=== PATIENT | male | born 1980 | race Caucasian/White ===

== ENCOUNTER 2024-07-04 03:08 | Inpatient (IN) | payer OTHER ==
[2024-07-04] MEDS: SODIUM CHLORIDE 0.9% 1,000 ML IV STA ×2 (04:04→05:00)
[2024-07-04] MEDS: LORazepam 2 MG/ML INJ IV STA ×5 (04:14→07:17)
[2024-07-04] MEDS: ONDANSETRON 4 MG/2 ML VIAL IVP STA (04:28)
[2024-07-04 04:31] LABS: Basophils % (A) 0 %; Eosinophils # (A) 0.2 k/uL (0-0.7); Eosinophils % (A) 2 %; HCT 44.9 % (39.0-53.0); HGB 15.4 gm/dL (13.0-17.5); Lymphocytes # (A) 2.1 k/uL (1.0-4.8); Lymphocytes % (A) 19 %; MCH 30.3 pg (25.0-35.0); MCHC 34.4 g/dL (31.0-37.0); MCV 88.2 fL (80.0-100.0); Monocytes # (A) 0.6 k/uL (0-1.0); Monocytes % (A) 5 %; Neutrophils # (A) 8.1 k/uL (1.3-7.7); Neutrophils % (A) 72 %; Platelet Count 281 k/uL (150-450); RBC 5.09 m/uL (4.30-5.90); RDW 13.9 % (11.5-15.5); WBC 11.2 k/uL (3.8-10.6)
[2024-07-04 04:36] LABS: ALT 23 U/L (4-49); AST 36 U/L (17-59); African American GFR (CKD) >90 (>60 ml/min/1.73 sqM); Albumin 4.3 g/dL (3.5-5.0); Alkaline Phosphatase 89 U/L (38-126); Amylase 72 U/L (30-110); Anion Gap 4 mmol/L; Blood Urea Nitrogen 10 mg/dL (9-20); Calcium 10.1 mg/dL (8.4-10.2); Carbon Dioxide 23 mmol/L (22-30); Chloride 108 mmol/L (98-107); Glucose 119 mg/dL (74-99); Lipase 176 U/L (23-300); Non-African American GFR(CKD) >90 (>60 ml/min/1.73 sqM); Potassium 3.8 mmol/L (3.5-5.1); Sodium 135 mmol/L (137-145); Total Protein 7.1 g/dL (6.3-8.2)
[2024-07-04 04:40] LABS: Partial Thromboplastin Time 26.2 sec (22.0-30.0); Prothrombin Time 10.8 sec (10.0-12.5)
[2024-07-04] MEDS: LORazepam 2 MG/ML INJ IV PRN ×2 (04:55→08:16)
--- NOTE | 2024-07-04 05:03 | CT ---
EXAMINATION TYPE: CT brain wo con DATE OF EXAM: 07/04/2024 COMPARISON: None. HISTORY: Confusion CT DLP: 1164 mGycm. Automated Exposure Control for Dose Reduction was Utilized. TECHNIQUE: CT scan of the head is performed without contrast. FINDINGS: There is no acute intracranial hemorrhage, mass effect, or midline shift identified. Mild ventricular and sulcal prominence. Knight-white matter differentiation is maintained. Nasal septum is deviated to right of midline. The globes are intact bilaterally. Completely opacified right maxillary sinus with suggestion of break through along the posterior sinus wall. Advise ENT follow-up. IMPRESSION: No acute intracranial hemorrhage or midline shift is seen. Completely opacified right ma xillary sinus noted. [facility], , 07/04/2024 5:00 AM
[2024-07-04] MEDS ORDERED: NALOXONE 0.4 MG/ML 1 ML VIAL IV PRN (05:21)
--- NOTE | 2024-07-04 05:21 | ED ---
General Adult HPI - General Chief complaint: Alcohol Stated complaint: Detox Time Seen by Provider: 07/04/24 03:48 Source: patient, RN notes reviewed, old records reviewed Mode of arrival: ambulatory Limitations: no limitations - History of Present Illness Initial comments: 44-year-old male with no significant past medical history presents emergency department for alcohol drawl's. Presents from [place] over concern for some intermittent agitation. Began detoxing approximately 24 hours ago. Last drink was at 0030 last night. Does have a history of alcohol withdrawals. Denies any chest pain or shortness of breath. Denies any abdominal pain, nausea, vomiting. Presents for further evaluation. - Related Data Allergies Allergy/AdvReac Type Severity Reaction Status Date / Time No Known Allergies Allergy Verified 07/04/24 03:17 Review of Systems ROS Statement: Those systems with pertinent positive or pertinent negative responses have been documented in the HPI. Review of Systems: CONST: Denies fever EYES: Denies blurry vision ENT: Denies nasal congestion C/V: Denies Chest pain RESP: Denies shortness of breath GI: Denies abdominal pain : Denies dysuria SKIN: Denies rash. MSK: Denies joint pain. NEURO: Denies headache ROS Other: All systems not noted in ROS Statement are negative. Past Medical History Past Medical History: No Reported History Past Surgical History: No Surgical Hx Reported Past Psychological History: No Psychological Hx Reported Smoking Status: Current every day smoker Past Alcohol Use History: Abuse Past Drug Use History: None Reported General Exam - General Exam Comments Initial Comments: General: Patient has mild tremors and tongue fasciculations. HEAD: Normal with no signs of head trauma. EYES: PERRLA, EOMI, conjunctiva normal, no discharge. Close are 3 mm and equal bilaterally. ENT: Hearing grossly intact, normal oropharynx. RESPIRATORY: Clear breath sounds bilaterally. No wheezes, rales, or rhonchi. C/V: Regular rate and rhythm. S1 and S2 auscultated, no edema, peripheral pulses 2+ and intact throughout ABD: Abd is soft, nontender, nondistended EXT: Normal range of motion, no obvious deformity SKIN: No rashes or lesions observed on exposed skin. NEURO: Alert and oriented x 3 but does have some conversational confusion. No focal deficits appreciated. Limitations: no limitations Course Vital Signs 07/04/24 03:12 Temperature 98.7 F Pulse Rate 96 Respiratory 18 Rate Blood Pressure 148/107 O2 Sat by Pulse 99 Oximetry Medical Decision Making - Medical Decision Making Was pt. sent in by a medical professional or institution (CLARISSA Garcia, HUMAN RESOURCE STATISTICIAN, urgent care, hospital, or prison...) When possible be specific @ -Sent from [place] over concern for worsening alcohol withdrawals Did you speak to anyone other than the patient for history (EMS, parent, family, police, friend...)? What history was obtained from this source @ -No Did you review nursing and triage notes (agree or disagree)? Why? @ -I reviewed and agree with nursing and triage notes Were old charts reviewed (outside hosp., previous admission, EMS record, old EKG, old radiological studies, urgent care reports/EKG's, prison records)? Report findings @ -No old charts were reviewed Differential Diagnosis (chest pain, altered mental status, abdominal pain women, abdominal pain men, vaginal bleeding, weakness, fever, dyspnea, syncope, headache, dizziness, GI bleed, back pain, seizure, CVA, palpatations, mental health, musculoskeletal)? @ -Alcohol withdrawals, dehydration, electrolyte abnormalities. This list is not all inclusive. EKG interpreted by me (3pts min.). @ -As above X-rays interpreted by me (1pt min.). @ -None done CT interpreted by me (1pt min.). @ -Brain reveals no obvious acute intracranial process. U/S interpreted by me (1pt. min.). @ -None done What testing was considered but not performed or refused? (CT, X-rays, U/S, labs)? Why? @ -None What meds were considered but not given or refused? Why? @ -None Did you discuss the management of the patient with other professionals (professionals i.e. CLARISSA Garcia, HUMAN RESOURCE STATISTICIAN, lab, RT, psych nurse, manager social, test specialist, teacher, chief procurement officer, onsite case manager)? Give summary @ -No Was smoking cessation discussed for >3mins.? @ -No Was critical care preformed (if so, how long)? @ -No Were there social determinants of health that impacted care today? How? (Homeles sness, low income, unemployed, alcoholism, drug addiction, transportation, low edu. Level, literacy, decrease access to med. care, penitentiary, rehab)? @ -No Was there de-escalation of care discussed even if they declined (Discuss DNR or withdrawal of care, Hospice)? DNR status @ -No What co-morbidities impacted this encounter? (DM, HTN, Smoking, COPD, CAD, Cancer, CVA, ARF, Chemo, Hep., AIDS, mental health diagnosis, sleep apnea, morbid obesity)? @ -None Was patient admitted / discharged? Hospital course, mention meds given and route, prescriptions, significant lab abnormalities, going to OR and other pertinent info. @ -Patient presents emergency department for alcohol withdrawals from rehab. Patient was placed on CIWA protocol. CIWA's approximately 12. Patient will be given IV Ativan and we will obtain CT brain due to his conversation confusion in addition to laboratory studies. Patient in agreement this plan. Vitals are currently within acceptable limits. EKG shows no signs of acute ischemia. CT brain shows no obvious acute intracranial process. Laboratory studies unremarkable. On reevaluation, patient is still having withdrawal symptoms. He will be admitted for his alcohol withdrawals. I spoke with the admitting team, Dr. Blount of [facility] who accepted the admission. We will continue with CIWA protocol. Undiagnosed new problem with uncertain prognosis? @ -No Drug Therapy requiring intensive monitoring for toxicity (Heparin, Nitro, Insulin, Cardizem)? @ -No Were any procedures done? @ -No Diagnosis/symptom? @ -Alcohol withdrawals Acute, or Chronic, or Acute on Chronic? @ -Acute Uncomplicated (without systemic symptoms) or Complicated (systemic symptoms)? @ -Complicated Side effects of treatment? @ -No Exacerbation, Progression, or Severe Exacerbation? @ -No Poses a threat to life or bodily function? How? (Chest pain, [place], [place], pneumonia, PE, COPD, DKA, ARF, appy, cholecystitis, CVA, Diverticulitis, Homicidal, Suicidal, threat to staff... and all critical care pts) @ -Potentially, yes - Lab Data Result diagrams: 07/04/24 03:29 07/04/24 03:29 Lab Results 07/04/24 07/04/24 07/04/24 Range/Units 03:29 03:29 03:29 WBC 11.2 H (3.8-10.6) k/uL RBC 5.09 (4.30-5.90) m/uL Hgb 15.4 (13.0-17.5) gm/dL Hct 44.9 (39.0-53.0) % MCV 88.2 (80.0-100.0) fL MCH 30.3 (25.0-35.0) pg MCHC 34.4 (31.0-37.0) g/dL RDW 13.9 (11.5-15.5) % Plt Count 281 (150-450) k/uL MPV 8.0 Neutrophils % 72 % Lymphocytes % 19 % Monocytes % 5 % Eosinophils % 2 % Basophils % 0 % Neutrophils # 8.1 H (1.3-7.7) k/uL Lymphocytes # 2.1 (1.0-4.8) k/uL Monocytes # 0.6 (0-1.0) k/uL Eosinophils # 0.2 (0-0.7) k/uL Basophils # 0.0 (0-0.2) k/uL PT 10.8 (10.0-12.5) sec INR 1.0 (<1.2) APTT 26.2 (22.0-30.0) sec Sodium 135 L (137-145) mmol/L Potassium 3.8 (3.5-5.1) mmol/L Chloride 108 H (98-107) mmol/L Carbon Dioxide 23 (22-30) mmol/L Anion Gap 4 mmol/L BUN 10 (9-20) mg/dL Creatinine 0.85 (0.66-1.25) mg/dL Est GFR (CKD-EPI)AfAm >90 (>60 ml/min/1.73 sqM) Est GFR (CKD-EPI)NonAf >90 (>60 ml/min/1.73 sqM) Glucose 119 H (74-99) mg/dL Calcium 10.1 (8.4-10.2) mg/dL Total Bilirubin 1.0 (0.2-1.3) mg/dL AST 36 (17-59) U/L ALT 23 (4-49) U/L Alkaline Phosphatase 89 (38-126) U/L Ammonia (<30) umol/L Total Protein 7.1 (6.3-8.2) g/dL Albumin 4.3 (3.5-5.0) g/dL Amylase 72 (30-110) U/L Lipase 176 (23-300) U/L 07/04/24 Range/Units 03:29 WBC (3.8-10.6) k/uL RBC (4.30-5.90) m/uL Hgb (13.0-17.5) gm/dL Hct (39.0-53.0) % MCV (80.0-100.0) fL MCH (25.0-35.0) pg MCHC (31.0-37.0) g/dL RDW (11.5-15.5) % Plt Count (150-450) k/uL MPV Neutrophils % % Lymphocytes % % Monocytes % % Eosinophils % % Basophils % % Neutrophils # (1.3-7.7) k/uL Lymphocytes # (1.0-4.8) k/uL Monocytes # (0-1.0) k/uL Eosinophils # (0-0.7) k/uL Basophils # (0-0.2) k/uL PT (10.0-12.5) sec INR (<1.2) APTT (22.0-30.0) sec Sodium (137-145) mmol/L Potassium (3.5-5.1) mmol/L Chloride (98-107) mmol/L Carbon Dioxide (22-30) mmol/L Anion Gap mmol/L BUN (9-20) mg/dL Creatinine (0.66-1.25) mg/dL Est GFR (CKD-EPI)AfAm (>60 ml/min/1.73 sqM) Est GFR (CKD-EPI)NonAf (>60 ml/min/1.73 sqM) Glucose (74-99) mg/dL Calcium (8.4-10.2) mg/dL Total Bilirubin (0.2-1.3) mg/dL AST (17-59) U/L ALT (4-49) U/L Alkaline Phosphatase (38-126) U/L Ammonia 15 (<30) umol/L Total Protein (6.3-8.2) g/dL Albumin (3.5-5.0) g/dL Amylase (30-110) U/L Lipase (23-300) U/L - EKG Data -: EKG Interpreted by Me EKG Comments: 12-lead Electrocardiogram Interpretation Note EKG was reviewed and interpreted by myself. 12-lead ECG performed at 0354 is interpreted by me as revealing normal sinus rhythm at a rate of 71 beats per minute. [place] is normal. UT interval is 126 ms, QRS duration is 110 ms, QTc is 348 ms.. There were no ST or T wave abnormalities to suggest myocardial ischemia or injury. R wave progression across the precordium was satisfactory. By my interpretation this EKG is non-diagnostic for acute ischemia. Disposition Clinical Impression: Alcohol withdrawal Disposition: ADMITTED IP TO THIS HOSP Condition: Stable Time of Disposition: 05:20
[2024-07-04] MEDS: NICOTINE 14MG/24HR PATCH TRANSDERM STA (05:31)
--- NOTE | 2024-07-04 06:41 | ED ---
Medical Decision Making - Lab Data Result diagrams: 07/04/24 03:29 07/04/24 03:29 Lab Results 07/04/24 07/04/24 07/04/24 Range/Units 03:29 03:29 03:29 WBC 11.2 H (3.8-10.6) k/uL RBC 5.09 (4.30-5.90) m/uL Hgb 15.4 (13.0-17.5) gm/dL Hct 44.9 (39.0-53.0) % MCV 88.2 (80.0-100.0) fL MCH 30.3 (25.0-35.0) pg MCHC 34.4 (31.0-37.0) g/dL RDW 13.9 (11.5-15.5) % Plt Count 281 (150-450) k/uL MPV 8.0 Neutrophils % 72 % Lymphocytes % 19 % Monocytes % 5 % Eosinophils % 2 % Basophils % 0 % Neutrophils # 8.1 H (1.3-7.7) k/uL Lymphocytes # 2.1 (1.0-4.8) k/uL Monocytes # 0.6 (0-1.0) k/uL Eosinophils # 0.2 (0-0.7) k/uL Basophils # 0.0 (0-0.2) k/uL PT 10.8 (10.0-12.5) sec INR 1.0 (<1.2) APTT 26.2 (22.0-30.0) sec Sodium 135 L (137-145) mmol/L Potassium 3.8 (3.5-5.1) mmol/L Chloride 108 H (98-107) mmol/L Carbon Dioxide 23 (22-30) mmol/L Anion Gap 4 mmol/L BUN 10 (9-20) mg/dL Creatinine 0.85 (0.66-1.25) mg/dL Est GFR (CKD-EPI)AfAm >90 (>60 ml/min/1.73 sqM) Est GFR (CKD-EPI)NonAf >90 (>60 ml/min/1.73 sqM) Glucose 119 H (74-99) mg/dL Calcium 10.1 (8.4-10.2) mg/dL Total Bilirubin 1.0 (0.2-1.3) mg/dL AST 36 (17-59) U/L ALT 23 (4-49) U/L Alkaline Phosphatase 89 (38-126) U/L Ammonia (<30) umol/L Total Protein 7.1 (6.3-8.2) g/dL Albumin 4.3 (3.5-5.0) g/dL Amylase 72 (30-110) U/L Lipase 176 (23-300) U/L 07/04/24 Range/Units 03:29 WBC (3.8-10.6) k/uL RBC (4.30-5.90) m/uL Hgb (13.0-17.5) gm/dL Hct (39.0-53.0) % MCV (80.0-100.0) fL MCH (25.0-35.0) pg MCHC (31.0-37.0) g/dL RDW (11.5-15.5) % Plt Count (150-450) k/uL MPV Neutrophils % % Lymphocytes % % Monocytes % % Eosinophils % % Basophils % % Neutrophils # (1.3-7.7) k/uL Lymphocytes # (1.0-4.8) k/uL Monocytes # (0-1.0) k/uL Eosinophils # (0-0.7) k/uL Basophils # (0-0.2) k/uL PT (10.0-12.5) sec INR (<1.2) APTT (22.0-30.0) sec Sodium (137-145) mmol/L Potassium (3.5-5.1) mmol/L Chloride (98-107) mmol/L Carbon Dioxide (22-30) mmol/L Anion Gap mmol/L BUN (9-20) mg/dL Creatinine (0.66-1.25) mg/dL Est GFR (CKD-EPI)AfAm (>60 ml/min/1.73 sqM) Est GFR (CKD-EPI)NonAf (>60 ml/min/1.73 sqM) Glucose (74-99) mg/dL Calcium (8.4-10.2) mg/dL Total Bilirubin (0.2-1.3) mg/dL AST (17-59) U/L ALT (4-49) U/L Alkaline Phosphatase (38-126) U/L Ammonia 15 (<30) umol/L Total Protein (6.3-8.2) g/dL Albumin (3.5-5.0) g/dL Amylase (30-110) U/L Lipase (23-300) U/L Disposition Clinical Impression: Alcohol withdrawal Disposition: ADMITTED IP TO THIS [facility] Condition: Stable Procedures - Restraint - Face to Face Restraint Occurrence 1 Patient's Immediate Situation: Endangers self safety, Endangers others' safety, Endangers staff safety Patient's Reaction to the Intervention: Uncooperative Patient's Medical & Behavioral Condition: Awake, Alert
[2024-07-04] MEDS: NICOTINE 21MG/24HR PATCH TRANSDERM SCH (07:17)
[2024-07-04] MEDS: SODIUM CHLORIDE 0.9% 1,000 ML IV SCH (08:38)
--- NOTE | 2024-07-04 09:03 | P.HPIM ---
History of Present Illness H&P Date: 07/04/24 Patient is a 44-year-old male with history of alcohol dependence presenting for alcohol withdrawal. Per report, patient was checked in to [place] 2 days ago. Supposedly last drink was 2 days ago as well. He comes in with severe alcohol withdrawal symptoms. In the ED he has been very combative, also complaining of visual hallucinations. Patient unable to provide any other meaningful history at the moment. In the ED, temperature was 98.7, pulse 96, respiratory rate 18, blood pressure 148/107, saturating at 99% on room air. WBC 11.2, sodium 135, potassium 3.8, creatinine 0.85, ammonia 15, lipase 176. Head CT did not show any acute process. EKG independently interpreted showed sinus rhythm with incomplete right bundle branch block. He around 2 L of normal saline in the ED. About 10 mg of IV Ativan. Patient being admitted for severe alcohol withdrawal. Pertinent positives and negatives as discussed in HPI, a complete review of systems was performed and all other systems are negative. Patient seen and examined at bedside. Vital signs reviewed General: Agitated Derm: warm, dry Head: atraumatic, normocephalic, symmetric Eyes: EOMI, no lid lag, anicteric sclera ENT: Nose and ears atraumatic Neck: No thyromegaly Mouth: no lip lesion, mucus membranes moist Cardiovascular: no edema Lungs: no accessory muscle use Abdominal: Nondistended Ext: no gross muscle atrophy, muscle strength muscle strength 5 out of 5 in all 4 extremities, no contractures Neuro: CN II-XII grossly intact Psych: Combative Assessment/Plan: Active: Severe alcohol withdrawal Alcohol dependence Mild leukocytosis, reactive -Continue IV Ativan per CIWA score, monitor for sedation -Started on Librium 25 3 times daily -Thiamine 100 mg and folic acid 1 mg ordered -Continue telemetry monitoring -If patient continues to be combative, may need Precedex drip and possible ICU consult Nicotine dependence -Continue 21 mg patch daily The patient is admitted with an anticipated greater than 2 midnight stay as inpatient status for evaluation of severe alcohol withdrawal. Surrogate decision-maker: Mother CODE STATUS: Full code DVT prophylaxis: Low [place] score, SCDs Anticipated discharge date: Pending clinical course Anticipated discharge place: Pending clinical course A total of 55 minutes was spent on the care of this complex patient more than 50% of the time was spent in counseling and care coordination. Past Medical History Past Medical History: No Reported History Past Surgical History: No Surgical Hx Reported Past Psychological History: No Psychological Hx Reported Smoking Status: Current every day smoker Past Alcohol Use History: Abuse Past Drug Use History: None Reported Medications and Allergies Home Medications Medication Instructions Recorded Confirmed Type Acetaminophen Tab [Tylenol] 650 mg PO QID PRN 07/04/24 07/04/24 History Calcium Phos/D3/Magnesium/Zinc 1 tab PO TID PRN 07/04/24 07/04/24 History [Rtuzvxx-Stc-Jlit-Vitamin D3] Chlorpheniramine Maleate 4 mg PO Q4H PRN 07/04/24 07/04/24 History [Chlor-Trimeton] Hyoscyamine Sulfate [Levsin] 0.125 mg PO QID PRN 07/04/24 07/04/24 History Ibuprofen [Motrin Ib] 600 mg PO Q6H PRN 07/04/24 07/04/24 History LORazepam [Ativan] 1 - 2 mg PO Q4H 07/04/24 07/04/24 History Loperamide HCl [Imodium A-D] 4 mg PO QID PRN 07/04/24 07/04/24 History Mag Hydrox/Aluminum Hyd/Simeth 30 ml PO Q4H PRN 07/04/24 07/04/24 History [Mylanta Maximum Strength Liq] Melatonin 10 mg PO HS 07/04/24 07/04/24 History Mirtazapine [Remeron] 15 mg PO HS 07/04/24 07/04/24 History Multivitamins, Thera [Multivitamin 1 tab PO DAILY PRN 07/04/24 07/04/24 History (formulary)] Thiamine [Vitamin B-1] 100 mg PO DAILY PRN 07/04/24 07/04/24 History cloNIDine HCL [Catapres] 0.1 - 0.3 mg PO Q4H PRN 07/04/24 07/04/24 History cloNIDine HCL [Catapres] 0.1 mg PO DAILY PRN 07/04/24 07/04/24 History ondansetron HCL [Zofran] 8 mg PO Q6H PRN 07/04/24 07/04/24 History traZODone HCL [Desyrel] 50 - 150 mg PO HS 07/04/24 07/04/24 History Allergies Allergy/AdvReac Type Severity Reaction Status Date / Time No Known Allergies Allergy Verified 07/04/24 07:58 Physical Exam Vitals: Vital Signs Temp Pulse Resp BP Pulse Ox 07/04/24 06:55 75 26 H 191/131 97 07/04/24 05:00 76 22 07/04/24 03:12 98.7 F 96 18 148/107 99 Intake and Output 07/03/24 07/04/24 07/04/24 22:59 06:59 14:59 Other: Weight 89.358 kg Results CBC & Chem 7: 07/04/24 03:29 07/04/24 03:29 Labs: Abnormal Lab Results - Last 24 Hours (Table) 07/04/24 07/04/24 Range/Units 03:29 03:29 WBC 11.2 H (3.8-10.6) k/uL Neutrophils # 8.1 H (1.3-7.7) k/uL Sodium 135 L (137-145) mmol/L Chloride 108 H (98-107) mmol/L Glucose 119 H (74-99) mg/dL
[2024-07-04] MEDS: DEXMEDETOMIDINE/0.9% NACL(PMX) 400 MCG in EMPTY BAG 1 BAG IV SCH (09:31)
[2024-07-04 09:59] LABS: Appearance,Urine Clear (Clear); Bilirubin,Urine Negative (Negative); Blood,Urine Negative (Negative); Color,Urine Light Yellow; Glucose,Urine (UA) Negative (Negative); Ketones,Urine Negative (Negative); Leukocyte Esterase,Urine Negative (Negative); Nitrite,Urine Negative (Negative); PH, Urine 7.5 (5.0-8.0); Protein,Urine Negative (Negative); Specific Gravity,Urine 1.009 (1.001-1.035); Urobilinogen,Urine <2.0 mg/dL (<2.0)
[2024-07-04] MEDS: THIAMINE 100 MG/ML 2 ML VIAL IM STA (12:46)
--- NOTE | 2024-07-04 13:17 | P.CNPUL ---
History of Present Illness Consult date: 07/04/24 Requesting physician: Luc Dillard Reason for consult: other (Acute alcohol withdrawal) Chief complaint: Severe alcohol withdrawal symptoms History of present illness: This is a 45-year-old white male with history of alcohol dependence, patient has been at [place] for the last 2 days, and his last drink was 2 days ago. Patient was sent here mostly because of severe alcohol withdrawal symptoms including restlessness agitation combativeness and visual hallucinations. I saw the patient in the ER, patient required significant amount of Ativan over 10 mg, and he continues to have a high CIWA score. Patient needs to be admitted to the ICU, in the meantime I recommended that the patient get started on Precedex. Saw the patient at the ER, placed on Precedex, seems to be calm, not in distress, and he will remain on the CIWA protocol. Will arrange for the patient to be transferred to the ICU as soon as a bed becomes available. Presently the patient is on Precedex at 0.2 mcg/kg/h. Considering the patient is sedated, could not get much history from the patient himself. Hence information was obtained from the chart. Review of Systems ROS unobtainable: due to mental status Past Medical History Past Medical History: No Reported History Past Surgical History: No Surgical Hx Reported Past Psychological History: No Psychological Hx Reported Smoking Status: Current every day smoker Past Alcohol Use History: Abuse Past Drug Use History: None Reported Medications and Allergies Home Medications Medication Instructions Recorded Confirmed Type Acetaminophen Tab [Tylenol] 650 mg PO QID PRN 07/04/24 07/04/24 History Calcium Phos/D3/Magnesium/Zinc 1 tab PO TID PRN 07/04/24 07/04/24 History [Vyfcqwe-Tim-Lyna-Vitamin D3] Chlorpheniramine Maleate 4 mg PO Q4H PRN 07/04/24 07/04/24 History [Chlor-Trimeton] Hyoscyamine Sulfate [Levsin] 0.125 mg PO QID PRN 07/04/24 07/04/24 History Ibuprofen [Motrin Ib] 600 mg PO Q6H PRN 07/04/24 07/04/24 History LORazepam [Ativan] 1 - 2 mg PO Q4H 07/04/24 07/04/24 History Loperamide HCl [Imodium A-D] 4 mg PO QID PRN 07/04/24 07/04/24 History Mag Hydrox/Aluminum Hyd/Simeth 30 ml PO Q4H PRN 07/04/24 07/04/24 History [Mylanta Maximum Strength Liq] Melatonin 10 mg PO HS 07/04/24 07/04/24 History Mirtazapine [Remeron] 15 mg PO HS 07/04/24 07/04/24 History Multivitamins, Thera [Multivitamin 1 tab PO DAILY PRN 07/04/24 07/04/24 History (formulary)] Thiamine [Vitamin B-1] 100 mg PO DAILY PRN 07/04/24 07/04/24 History cloNIDine HCL [Catapres] 0.1 - 0.3 mg PO Q4H PRN 07/04/24 07/04/24 History cloNIDine HCL [Catapres] 0.1 mg PO DAILY PRN 07/04/24 07/04/24 History ondansetron HCL [Zofran] 8 mg PO Q6H PRN 07/04/24 07/04/24 History traZODone HCL [Desyrel] 50 - 150 mg PO HS 07/04/24 07/04/24 History Allergies Allergy/AdvReac Type Severity Reaction Status Date / Time No Known Allergies Allergy Verified 07/04/24 07:58 Physical Exam Vitals: Vital Signs Temp Pulse Resp BP Pulse Ox 07/04/24 12:04 72 20 163/117 96 07/04/24 11:13 76 18 94 L 07/04/24 11:00 61 18 190/124 07/04/24 10:09 70 18 189/124 07/04/24 09:24 72 14 175/116 07/04/24 08:21 78 22 149/134 98 07/04/24 06:55 75 26 H 191/131 97 07/04/24 05:00 76 22 07/04/24 03:12 98.7 F 96 18 148/107 99 Intake and Output 07/03/24 07/04/24 07/04/24 22:59 06:59 14:59 Output Total 480 Balance -480 Output: Urine 480 Other: # Voids 1 Weight 89.358 kg Physical exam revealed 44-year-old white male calm, on room air, in no distress. Head: Atraumatic, normocephalic Eyes: PERRLA, nonicteric, ENT: Normal nasal mucosa, moist mucous membranes Neck: No neck masses no JVD no stridor no lymphadenopathy no thyromegaly Mouth: Moist mucous membranes, no mucoid lesions t Cardiovascular: Normal S1-S2, no S3 gallop, no murmur. Lungs: Clear bilaterally no crackles rhonchi or wheezes Abdominal: Soft nontender no megaly no rebound no guarding Ext: No clubbing edema or cyanosis Neuro: Could not fully assess, patient is calm sedated. Just received Ativan and presently on Precedex. Psych: Could not assess apparently he was combative earlier upon arrival to the ER Results - Laboratory Findings CBC and BMP: 07/04/24 03:29 07/04/24 03:29 PT/INR, D-dimer PT 10.8 sec (10.0-12.5) 07/04/24 03:29 INR 1.0 (<1.2) 07/04/24 03:29 Abnormal lab findings: Abnormal Labs 07/04/24 07/04/24 03:29 03:29 WBC 11.2 H Neutrophils # 8.1 H Sodium 135 L Chloride 108 H Glucose 119 H - Diagnostic Findings Additional studies: CT brain showed no acute intracranial process. He does have opacified right maxillary sinus Assessment and Plan Assessment: Impression: Acute alcohol withdrawal/acute delirium tremens History of alcoholism/alcohol dependence Recommendation: Will admit the patient to the ICU Continue the CIWA protocol Continue Precedex Continue thiamine Continue nicotine patch considering his smoking history Will continue to follow Time with Patient: Greater than 30
[2024-07-04] MEDS: chlordiazePOXIDE 25 MG CAP PO SCH (15:07)
[2024-07-04] MEDS: FOLIC ACID 1 MG TAB PO SCH (15:07)
[2024-07-04 20:38] LABS: Glucose,Whole Blood 102 mg/dL (70-110)
[2024-07-04] MEDS: cloNIDine HCL 0.1 MG TAB PO PRN (21:56)
[2024-07-04] MEDS: CLEVIDIPINE BUTYRATE 25 MG in EMPTY BAG 1 BAG IV SCH (23:34)
[2024-07-04] MEDS: amLODIPine 5 MG TAB PO SCH (23:35)
[2024-07-04] MEDS ORDERED: Potassium Replacement Protocol 1 EACH MISC MISCELLANE PRN (23:51)
[2024-07-04] MEDS ORDERED: Magnesium Replacement Protocol 1 EACH MISC MISCELLANE PRN (23:51)
[2024-07-05] MEDS: IBUPROFEN 400 MG TAB PO PRN (02:04)
[2024-07-05 07:39] LABS: Basophils # (A) 0.1 k/uL (0-0.2); Basophils % (A) 1 %; Eosinophils # (A) 0.3 k/uL (0-0.7); Eosinophils % (A) 2 %; HCT 50.7 % (39.0-53.0); HGB 16.6 gm/dL (13.0-17.5); Lymphocytes # (A) 2.3 k/uL (1.0-4.8); Lymphocytes % (A) 18 %; MCHC 32.8 g/dL (31.0-37.0); MCV 91.4 fL (80.0-100.0); Mean Platelet Volume 7.6; Monocytes # (A) 0.7 k/uL (0-1.0); Monocytes % (A) 5 %; Neutrophils # (A) 9.3 k/uL (1.3-7.7); Neutrophils % (A) 73 %; Platelet Count 246 k/uL (150-450); RBC 5.54 m/uL (4.30-5.90); RDW 13.7 % (11.5-15.5); WBC 12.8 k/uL (3.8-10.6)
[2024-07-05 07:54] LABS: ALT 26 U/L (4-49); AST 37 U/L (17-59); African American GFR (CKD) >90 (>60 ml/min/1.73 sqM); Albumin 4.2 g/dL (3.5-5.0); Alkaline Phosphatase 89 U/L (38-126); Anion Gap 10 mmol/L; Blood Urea Nitrogen 8 mg/dL (9-20); Calcium 9.5 mg/dL (8.4-10.2); Carbon Dioxide 22 mmol/L (22-30); Chloride 109 mmol/L (98-107); Glucose 84 mg/dL (74-99); Non-African American GFR(CKD) >90 (>60 ml/min/1.73 sqM); Potassium 3.8 mmol/L (3.5-5.1); Sodium 141 mmol/L (137-145); Total Bilirubin 1.1 mg/dL (0.2-1.3); Total Protein 7.1 g/dL (6.3-8.2)
[2024-07-05] MEDS ORDERED: POTASSIUM CHLORIDE 10 MEQ in WATER FOR INJECTION 1 100ML.BAG IVPB SCH (08:30)
[2024-07-05] MEDS: PANTOPRAZOLE 40 MG/10 ML VIAL IVP SCH (08:37)
[2024-07-05] MEDS: THIAMINE 100 MG TAB PO SCH (08:37)
[2024-07-05] MEDS: POTASSIUM CHLORIDE 20 MEQ in SODIUM CHLORIDE 0.9% 100 ML IVPB SCH (10:13)
[2024-07-05] MEDS: LORazepam 2 MG/ML INJ IV PRN (10:57)
--- NOTE | 2024-07-05 12:27 | P.PN ---
Subjective Progress Note Date: 07/05/24 Principal diagnosis: Acute alcohol withdrawal This is a 45-year-old white male with history of alcohol dependence, patient has been at [facility] for the last 2 days, and his last drink was 2 days ago. Patient was sent here mostly because of severe alcohol withdrawal symptoms including restlessness agitation combativeness and visual hallucinations. I saw the patient in the ER, patient required significant amount of Ativan over 10 mg, and he continues to have a high CIWA score. Patient needs to be admitted to the ICU, in the meantime I recommended that the patient get started on Precedex. Saw the patient at the ER, placed on Precedex, seems to be calm, not in distr ess, and he will remain on the CIWA protocol. Will arrange for the patient to be transferred to the ICU as soon as a bed becomes available. Presently the patient is on Precedex at 0.2 mcg/kg/h. Considering the patient is sedated, could not get much history from the patient himself. Hence information was obtained from the chart. Patient was seen today on, on room air, he is also on Precedex at 0.3 mcg/kg/h. Remains on Librium remains on CIWA protocol, patient is doing well, does not seem to be in any distress, he is quite quite comfortable WBC count is 12.8 hemoglobin is 16.6 electrolytes are normal renal profile is normal Objective - Vital Signs Vital signs: Vital Signs Temp 97.6 F 07/05/24 12:00 Pulse 84 07/05/24 12:00 Resp 20 07/05/24 12:00 BP 119/106 07/05/24 12:00 Pulse Ox 97 07/05/24 12:00 FiO2 Intake & Output 07/04/24 07/05/24 07/05/24 18:59 06:59 18:59 Intake Total 785.529 648.901 Output Total 480 900 400 Balance -480 -114.471 248.901 Weight 90.5 kg Intake: Intake, IV Titration 785.529 648.901 Amount Clevidipine Butyrate 25 31.967 13.434 mg In Empty Bag 1 bag @ 1 MG/HR 2 mls/hr IV .Q24H [facility] Rx#:[id number] Dexmedetomidine/0.9% NaCl 78.562 60.467 (Pmx) 400 mcg In Empty Bag 1 bag @ 0.2 MCG/KG/HR 4.468 mls/hr IV .[id number] [facility] Rx#:[id number] Potassium Chloride 20 meq 200 In Sodium Chloride 0.9% 100 ml @ 55 mls/hr IVPB Q2H [facility] Rx#:[id number] Sodium Chloride 0.9% 1, 675 375 000 ml @ 75 mls/hr IV . [id number] [facility] Rx#:[id number] Output: Urine 480 900 400 Other: Voiding Method External Catheter External Catheter # Voids 1 1 # Bowel Movements 1 - Exam Physical exam revealed 44-year-old white male calm, on room air, in no distress. Head: Atraumatic, normocephalic Eyes: PERRLA, nonicteric, ENT: Normal nasal mucosa, moist mucous membranes Neck: No neck masses no JVD no stridor no lymphadenopathy no thyromegaly Mouth: Moist mucous membranes, no mucoid lesions t Cardiovascular: Normal S1-S2, no S3 gallop, no murmur. Lungs: Clear bilaterally no crackles rhonchi or wheezes Abdominal: Soft nontender no megaly no rebound no guarding Ext: No clubbing edema or cyanosis Neuro: Alert oriented x 3 no gross focal deficit Psych: Normal mood affect and no mental status examination - Labs CBC & Chem 7: 07/05/24 06:26 07/05/24 06:26 Labs: Abnormal Lab Results - Last 24 Hours (Table) 07/05/24 07/05/24 Range/Units 06:26 06:26 WBC 12.8 H (3.8-10.6) k/uL Neutrophils # 9.3 H (1.3-7.7) k/uL Chloride 109 H (98-107) mmol/L BUN 8 L (9-20) mg/dL Assessment and Plan Assessment: Impression: Acute alcohol withdrawal/acute delirium tremens History of alcoholism/alcohol dependence Recommendation: Taper and possibly discontinue Precedex today and if tolerated patient could be transferred out of the ICU to a medical surgical floor Continue the CIWA protocol Continue thiamine Continue nicotine patch considering his smoking history Will continue to follow Time with Patient: Less than 30
--- NOTE | 2024-07-05 14:03 | P.PN ---
Subjective Progress Note Date: 07/05/24 Hospital Course: 44-year-old male with history of alcohol dependence presenting for alcohol [facility]. In the ED, temperature was 98.7, pulse 96, respiratory rate 18, blood pressure 148/107, saturating at 99% on room air. WBC 11.2, sodium 135, potassium 3.8, creatinine 0.85, ammonia 15, lipase 176. Head CT did not show any acute process. EKG independently interpreted showed sinus rhythm with incomplete right bundle branch block. He around 2 L of normal saline in the ED. About 10 mg of IV Ativan. Patient being admitted for severe alcohol withdrawal. Patient admitted to medical ICU. ICU following. Subjective: Patient seen and examined at bedside. No acute events overnight. Pertinent positives and negatives as discussed above, a complete review of systems was performed and all other systems are negative. Vitals Signs Reviewed. General: Agitated Derm: warm, dry Head: atraumatic, normocephalic, symmetric Eyes: EOMI, no lid lag, anicteric sclera ENT: Nose and ears atraumatic Neck: No thyromegaly Mouth: no lip lesion, mucus membranes moist Cardiovascular: no edema Lungs: no accessory muscle use Abdominal: Nondistended Ext: no gross muscle atrophy, muscle strength muscle strength 5 out of 5 in all 4 extremities, no contractures Neuro: CN II-XII grossly intact Psych: Combative Data Reviewed Today: Pertinent Labs: WBC 12.8, hemoglobin 16.6, potassium 3.8, creatinine 0.74, magnesium 2 Imaging: No new imaging Assessment and Plan: Severe alcohol withdrawal Alcohol dependence Mild leukocytosis, reactive -Continue IV Ativan per CIWA score, monitor for sedation -Librium increased to 50 3 times daily -Thiamine 100 mg and folic acid 1 mg -Continue telemetry monitoring -ICU note reviewed, continue to wean Precedex drip -Continue normal saline 75 cc an hour Hypertensive urgency -On Cleviprex drip, continue IV -Patient also started on amlodipine 5 mg daily -Elevated blood pressure likely in the setting of severe alcohol withdrawal -Also on clonidine 0.1 p.o. every 8 hours as needed Nicotine dependence -Continue 21 mg patch daily DVT ppx: SCDs Code status: Full code Anticipated discharge place: Pending clinical course Anticipated discharge time: Pending clinical course Objective - Vital Signs Vital signs: Vital Signs Temp 97.6 F 07/05/24 12:00 Pulse 84 07/05/24 12:00 Resp 20 07/05/24 12:00 BP 119/106 07/05/24 12:00 Pulse Ox 97 07/05/24 12:00 FiO2 Intake & Output 07/04/24 07/05/24 07/05/24 18:59 06:59 18:59 Intake Total 785.529 648.901 Output Total 480 900 400 Balance -480 -114.471 248.901 Weight 90.5 kg Intake: Intake, IV Titration 785.529 648.901 Amount Clevidipine Butyrate 25 31.967 13.434 mg In Empty Bag 1 bag @ 1 MG/HR 2 mls/hr IV .Q24H [facility] Rx#:[id number] Dexmedetomidine/0.9% NaCl 78.562 60.467 (Pmx) 400 mcg In Empty Bag 1 bag @ 0.2 MCG/KG/HR 4.468 mls/hr IV .[id number] [facility] Rx#:[id number] Potassium Chloride 20 meq 200 In Sodium Chloride 0.9% 100 ml @ 55 mls/hr IVPB Q2H [facility] Rx#:[id number] Sodium Chloride 0.9% 1, 675 375 000 ml @ 75 mls/hr IV . [id number] [facility] Rx#:[id number] Output: Urine 480 900 400 Other: Voiding Method External Catheter External Catheter # Voids 1 1 # Bowel Movements 1 - Labs CBC & Chem 7: 07/05/24 06:26 07/05/24 06:26 Labs: Abnormal Lab Results - Last 24 Hours (Table) 07/05/24 07/05/24 Range/Units 06:26 06:26 WBC 12.8 H (3.8-10.6) k/uL Neutrophils # 9.3 H (1.3-7.7) k/uL Chloride 109 H (98-107) mmol/L BUN 8 L (9-20) mg/dL
[2024-07-05] MEDS: chlordiazePOXIDE 25 MG CAP PO SCH (16:35)
[2024-07-06 05:48] LABS: Basophils % (A) 0 %; Eosinophils # (A) 0.3 k/uL (0-0.7); Eosinophils % (A) 3 %; HCT 48.5 % (39.0-53.0); HGB 16.9 gm/dL (13.0-17.5); Lymphocytes # (A) 2.7 k/uL (1.0-4.8); Lymphocytes % (A) 27 %; MCH 30.7 pg (25.0-35.0); MCHC 34.7 g/dL (31.0-37.0); MCV 88.3 fL (80.0-100.0); Mean Platelet Volume 7.8; Monocytes # (A) 0.6 k/uL (0-1.0); Monocytes % (A) 6 %; Neutrophils # (A) 6.3 k/uL (1.3-7.7); Neutrophils % (A) 62 %; Platelet Count 223 k/uL (150-450); RDW 14.1 % (11.5-15.5)
[2024-07-06 06:03] LABS: African American GFR (CKD) >90 (>60 ml/min/1.73 sqM); Anion Gap 8 mmol/L; Blood Urea Nitrogen 9 mg/dL (9-20); Calcium 9.4 mg/dL (8.4-10.2); Carbon Dioxide 19 mmol/L (22-30); Chloride 113 mmol/L (98-107); Glucose 89 mg/dL (74-99); Magnesium 1.9 mg/dL (1.6-2.3); Non-African American GFR(CKD) >90 (>60 ml/min/1.73 sqM); Potassium 3.5 mmol/L (3.5-5.1); Sodium 140 mmol/L (137-145)
[2024-07-06] MEDS: MAGNESIUM SULFATE-D5W PMX 1 GM in DEXTROSE/WATER 1 100ML.BAG IVPB ONE (06:21)
[2024-07-06] MEDS: POTASSIUM CHLORIDE ER 20 MEQ TAB.ER PO SCH (08:11)
--- NOTE | 2024-07-06 11:57 | P.PN ---
Subjective Progress Note Date: 07/06/24 Principal diagnosis: Acute alcohol withdrawal This is a 45-year-old white male with history of alcohol dependence, patient has been at [place] for the last 2 days, and his last drink was 2 days ago. Patient was sent here mostly because of severe alcohol withdrawal symptoms including restlessness agitation combativeness and visual hallucinations. I saw the patient in the ER, patient required significant amount of Ativan over 10 mg, and he continues to have a high CIWA score. Patient needs to be admitted to the ICU, in the meantime I recommended that the patient get started on Precedex. Saw the patient at the ER, placed on Precedex, seems to be calm, not in distr ess, and he will remain on the CIWA protocol. Will arrange for the patient to be transferred to the ICU as soon as a bed becomes available. Presently the patient is on Precedex at 0.2 mcg/kg/h. Considering the patient is sedated, could not get much history from the patient himself. Hence information was obtained from the chart. Patient was seen today , on room air, he is also on Precedex at 0.3 mcg/kg/h. Remains on Librium remains on CIWA protocol, patient is doing well, does not seem to be in any distress, he is quite quite comfortable WBC count is 12.8 hemoglobin is 16.6 electrolytes are normal renal profile is normal Patient was seen today on 07/06/2024, patient remains in the ICU, he is on Precedex at 0.3 mcg/kg/h. IV fluid at 0.9 normal saline, received 4 doses of Ativan last night and he seems to be very calm. I have instructed nursing staff to possibly taper and discontinue Precedex today, and if the patient remains calm with Ativan only we will arrange for him to be transferred out of the ICU to regular medical floor. In the meantime the patient seems to be calm and in no distress labs including CBC and basic metabolic profile are relatively normal. Objective - Vital Signs Vital signs: Vital Signs Temp 97.5 F L 07/06/24 08:00 Pulse 73 07/06/24 10:00 Resp 20 07/06/24 10:00 BP 135/99 07/06/24 10:00 Pulse Ox 93 L 07/06/24 10:00 FiO2 Intake & Output 07/05/24 07/06/24 07/06/24 18:59 06:59 18:59 Intake Total 0990.342 4878.745 378.190 Output Total 600 950 0 Balance 551.396 588.745 378.190 Weight 87.6 kg Intake: IV 825 300 Sodium Chloride 0.9% 1, 825 300 000 ml @ 75 mls/hr IV . [id number] [facility] Rx#:[id number] Intake, IV Titration 1151.396 173.745 78.190 Amount Clevidipine Butyrate 25 40.834 51.433 19.333 mg In Empty Bag 1 bag @ 1 MG/HR 2 mls/hr IV .Q24H [facility] Rx#:[id number] Dexmedetomidine/0.9% NaCl 85.562 122.312 58.857 (Pmx) 400 mcg In Empty Bag 1 bag @ 0.2 MCG/KG/HR 4.468 mls/hr IV .[id number] [facility] Rx#:[id number] Potassium Chloride 20 meq 200 In Sodium Chloride 0.9% 100 ml @ 55 mls/hr IVPB Q2H [facility] Rx#:[id number] Sodium Chloride 0.9% 1, 825 000 ml @ 75 mls/hr IV . [id number] [facility] Rx#:[id number] Oral 540 Output: Urine 600 950 0 Other: Voiding Method External Catheter External Catheter External Catheter # Voids 1 # Bowel Movements 1 - Exam Physical exam revealed 44-year-old white male calm, on room air, in no distress. Head: Atraumatic, normocephalic Eyes: PERRLA, nonicteric, ENT: Normal nasal mucosa, moist mucous membranes Neck: No neck masses no JVD no stridor no lymphadenopathy no thyromegaly Mouth: Moist mucous membranes, no mucoid lesions t Cardiovascular: Normal S1-S2, no S3 gallop, no murmur. Lungs: Clear bilaterally no crackles rhonchi or wheezes Abdominal: Soft nontender no megaly no rebound no guarding Ext: No clubbing edema or cyanosis Neuro: Alert oriented x 3 no gross focal deficit Psych: Normal mood affect and no mental status examination - Labs CBC & Chem 7: 07/06/24 04:47 07/06/24 04:47 Labs: Abnormal Lab Results - Last 24 Hours (Table) 07/06/24 Range/Units 04:47 Chloride 113 H (98-107) mmol/L Carbon Dioxide 19 L (22-30) mmol/L Assessment and Plan Assessment: Impression: Acute alcohol withdrawal/acute delirium tremens History of alcoholism/alcohol dependence Recommendation: Recommend tapering and stopping Precedex Continue the CIWA protocol Continue thiamine Continue nicotine patch considering his smoking history Will continue to follow Time with Patient: Less than 30
--- NOTE | 2024-07-06 13:35 | P.PN ---
Subjective Progress Note Date: 07/06/24 Hospital Course: 44-year-old male with history of alcohol dependence presenting for alcohol [facility]. In the ED, temperature was 98.7, pulse 96, respiratory rate 18, blood pressure 148/107, saturating at 99% on room air. WBC 11.2, sodium 135, potassium 3.8, creatinine 0.85, ammonia 15, lipase 176. Head CT did not show any acute process. EKG independently interpreted showed sinus rhythm with incomplete right bundle branch block. He around 2 L of normal saline in the ED. About 10 mg of IV Ativan. Patient being admitted for severe alcohol withdrawal. Patient admitted to medical ICU. ICU following. Patient remains on Precedex drip. Subjective: Patient seen and examined at bedside. No acute events overnight. Pertinent positives and negatives as discussed above, a complete review of systems was performed and all other systems are negative. Vitals Signs Reviewed. General: Sleeping Derm: warm, dry Head: atraumatic, normocephalic, symmetric Eyes: EOMI, no lid lag, anicteric sclera ENT: Nose and ears atraumatic Neck: No thyromegaly Mouth: no lip lesion, mucus membranes moist Cardiovascular: no edema Lungs: no accessory muscle use Abdominal: Nondistended Ext: no gross muscle atrophy, muscle strength muscle strength 5 out of 5 in all 4 extremities, no contractures Neuro: CN II-XII grossly intact Psych: Sleeping and cooperative Data Reviewed Today: Pertinent Labs: WBC 10, bicarb 19, creatinine 0.77, magnesium 1.9 Imaging: No new imaging Assessment and Plan: Severe alcohol withdrawal Alcohol dependence Mild leukocytosis, reactive, resolved Non-anion gap metabolic acidosis, likely from saline -Continue IV Ativan per CIWA score, monitor for sedation -Continue Librium 50 3 times daily -Thiamine 100 mg and folic acid 1 mg -Continue telemetry monitoring -ICU note reviewed, continue to wean Precedex drip -DC normal saline Hypertensive urgency -Off Cleviprex drip -Patient on amlodipine 5 mg daily -Elevated blood pressure likely in the setting of severe alcohol withdrawal -Also on clonidine 0.1 p.o. every 8 hours as needed Nicotine dependence -Continue 21 mg patch daily DVT ppx: SCDs Code status: Full code Anticipated discharge place: Pending clinical course Anticipated discharge time: Pending clinical course Objective - Vital Signs Vital signs: Vital Signs Temp 97.5 F L 10/26/24 08:00 Pulse 73 07/06/24 10:00 Resp 20 07/06/24 10:00 BP 135/99 07/06/24 10:00 Pulse Ox 93 L 07/06/24 10:00 FiO2 Intake & Output 07/05/24 07/06/24 07/06/24 18:59 06:59 18:59 Intake Total 4803.523 1388.745 603.190 Output Total 600 950 250 Balance 551.396 588.745 353.190 Weight 87.6 kg Intake: IV 825 525 Sodium Chloride 0.9% 1, 825 525 000 ml @ 75 mls/hr IV . [id number] [facility] Rx#:[id number] Intake, IV Titration 1151.396 173.745 78.190 Amount Clevidipine Butyrate 25 40.834 51.433 19.333 mg In Empty Bag 1 bag @ 1 MG/HR 2 mls/hr IV .Q24H [facility] Rx#:[id number] Dexmedetomidine/0.9% NaCl 85.562 122.312 58.857 (Pmx) 400 mcg In Empty Bag 1 bag @ 0.2 MCG/KG/HR 4.468 mls/hr IV .[id number] [facility] Rx#:[id number] Potassium Chloride 20 meq 200 In Sodium Chloride 0.9% 100 ml @ 55 mls/hr IVPB Q2H [facility] Rx#:[id number] Sodium Chloride 0.9% 1, 825 000 ml @ 75 mls/hr IV . [id number] [facility] Rx#:[id number] Oral 540 Output: Urine 600 950 250 Other: Voiding Method External Catheter External Catheter External Catheter # Voids 1 # Bowel Movements 1 - Labs CBC & Chem 7: 07/06/24 04:47 07/06/24 04:47 Labs: Abnormal Lab Results - Last 24 Hours (Table) 07/06/24 Range/Units 04:47 Chloride 113 H (98-107) mmol/L Carbon Dioxide 19 L (22-30) mmol/L
[2024-07-06] MEDS: DEXTROSE 5% IN WATER 1,000 ML IV ONE (15:09)
[2024-07-07] MEDS: MELATONIN 3 MG TABLET PO SCH (02:30)
[2024-07-07] MEDS: ZOLPIDEM 5 MG TAB PO PRN (03:23)
[2024-07-07 04:20] VITALS: TEMP 98
[2024-07-07] MEDS: ONDANSETRON 4 MG/2 ML VIAL IVP PRN (06:02)
[2024-07-07 06:12] LABS: African American GFR (CKD) >90 (>60 ml/min/1.73 sqM); Anion Gap 7 mmol/L; Blood Urea Nitrogen 13 mg/dL (9-20); Calcium 9.3 mg/dL (8.4-10.2); Carbon Dioxide 19 mmol/L (22-30); Chloride 114 mmol/L (98-107); Glucose 93 mg/dL (74-99); Magnesium 1.9 mg/dL (1.6-2.3); Non-African American GFR(CKD) 87 (>60 ml/min/1.73 sqM); Potassium 3.4 mmol/L (3.5-5.1); Sodium 140 mmol/L (137-145)
[2024-07-07] MEDS: POTASSIUM CHLORIDE ER 20 MEQ TAB.ER PO STA (08:35)
[2024-07-07 09:50] VITALS: BP 140/114; PULSE 96; RESP 14
--- NOTE | 2024-07-07 11:30 | P.PN ---
Subjective Progress Note Date: 07/07/24 This is a 45-year-old white male with history of alcohol dependence, patient has been at [place] for the last 2 days, and his last drink was 2 days ago. Patient was sent here mostly because of severe alcohol withdrawal symptoms including restlessness agitation combativeness and visual hallucinations. I saw the patient in the ER, patient required significant amount of Ativan over 10 mg, and he continues to have a high CIWA score. Patient needs to be admitted to the ICU, in the meantime I recommended that the patient get started on Precedex. Saw the patient at the ER, placed on Precedex, seems to be calm, not in distress, and he will remain on the CIWA protocol. Will arrange for the patient to be transferred to the ICU as soon as a bed becomes available. Presently the patient is on Precedex at 0.2 mcg/kg/h. Considering the patient is sedated, could not get much history from the patient himself. Hence information was obtained from the chart. Patient was seen today , on room air, he is also on Precedex at 0.3 mcg/kg/h. Remains on Librium remains on CIWA protocol, patient is doing well, does not seem to be in any distress, he is quite quite comfortable WBC count is 12.8 hemoglobin is 16.6 electrolytes are normal renal profile is normal Patient was seen today on 07/06/2024, patient remains in the ICU, he is on Precedex at 0.3 mcg/kg/h. IV fluid at 0.9 normal saline, received 4 doses of Ativan last night and he seems to be very calm. I have instructed nursing staff to possibly taper and discontinue Precedex today, and if the patient remains calm with Ativan only we will arrange for him to be transferred out of the ICU to regular medical floor. In the meantime the patient seems to be calm and in no distress labs including CBC and basic metabolic profile are relatively normal. The patient is seen today July 07, 2024 in follow-up in the intensive care unit. He is currently awake and alert in no acute distress. He has been off Precedex for greater than 24 hours. He remains on the CIWA protocol. He is maintaining good O2 saturations in the 90s on room air. He has been afebrile. Hemodynamically stable. Sodium 140. Potassium 3.4. Bicarb 19. BUN 13. Creatinine 1.06. NicoDerm patch in place. Objective - Vital Signs Vital signs: Vital Signs Temp 98.0 F 07/07/24 08:00 Pulse 96 07/07/24 08:00 Resp 14 07/07/24 08:00 BP 140/114 07/07/24 08:00 Pulse Ox 96 07/07/24 04:00 FiO2 Intake & Output 07/06/24 07/07/24 07/07/24 18:59 06:59 18:59 Intake Total 678.190 Output Total 250 50 0 Balance 428.190 -50 0 Weight 85.2 kg Intake: IV 600 Sodium Chloride 0.9% 1, 600 000 ml @ 75 mls/hr IV . [id number] [facility] Rx#:[id number] Intake, IV Titration 78.190 Amount Clevidipine Butyrate 25 19.333 mg In Empty Bag 1 bag @ 1 MG/HR 2 mls/hr IV .Q24H [facility] Rx#:[id number] Dexmedetomidine/0.9% NaCl 58.857 (Pmx) 400 mcg In Empty Bag 1 bag @ 0.2 MCG/KG/HR 4.468 mls/hr IV .[id number] [facility] Rx#:[id number] Output: Urine 250 50 0 Other: Voiding Method External Catheter Toilet Toilet # Voids 1 # Bowel Movements 1 - Exam GENERAL EXAM: Alert, active, 44-year-old male, calm and cooperative, on room air, comfortable in no apparent distress. HEAD: Normocephalic. EYES: Normal reaction of pupils, equal size. NOSE: Clear with pink turbinates. THROAT: No erythema or exudates. NECK: No masses, no JVD. CHEST: No chest wall deformity. LUNGS: Equal air entry with no crackles, wheeze, rhonchi or dullness. CVS: S1 and S2 normal with no audible murmur, regular rhythm. ABDOMEN: No hepatosplenomegaly, normal bowel sounds, no guarding or rigidity. SPINE: No scoliosis or deformity SKIN: No rashes CENTRAL NERVOUS SYSTEM: No focal deficits, tone is normal in all 4 extremities. EXTREMITIES: There is no peripheral edema. No clubbing, no cyanosis. Peripheral pulses are intact. - Labs CBC & Chem 7: 07/06/24 04:47 07/07/24 05:36 Labs: Abnormal Lab Results - Last 24 Hours (Table) 07/07/24 Range/Units 05:36 Potassium 3.4 L (3.5-5.1) mmol/L Chloride 114 H (98-107) mmol/L Carbon Dioxide 19 L (22-30) mmol/L Assessment and Plan Assessment: Acute alcohol withdrawal/acute delirium tremens, recovered History of alcoholism/alcohol dependence Chronic and ongoing tobacco dependence Plan: The patient was seen and evaluated Medications and labs reviewed Stable and on room air Educated regarding the importance of alcohol cessation, smoking cessation Plan is to return to [place] for rehabilitation today This patient was seen independently by the pulmonary nurse practitioner addressing pulmonary/critical care issues I have personally seen and examined the patient, performed the documentation and the assessment and plan as written. Number of minutes spent on the visit: 23 Dictation was produced using [employer] dictation software. Please excuse any grammatical, word or spelling errors.
--- NOTE | 2024-07-07 12:25 | P.DS ---
Providers Date of admission: 07/04/24 08:14 Expected date of discharge: 07/07/24 Attending physician: Be Blount MD Consults: 07/04/24 08:30 Consult Physician Urgent Consulting Provider: Juan A Benjamin Consult Reason/Comments: severe Etoh withdrawal Do you want consulting provider notified?: Yes Primary care physician: Stated None Hospital Course: Discharge Diagnosis: Severe alcohol withdrawal Delirium tremens Alcohol dependence Mild leukocytosis, reactive Non-anion gap metabolic acidosis Hypertensive urgency Nicotine dependence Hospital Course: 44-year-old male with history of alcohol dependence presenting for alcohol withdrawal. In the ED, temperature was 98.7, pulse 96, respiratory rate 18, blood pressure 148/107, saturating at 99% on room air. WBC 11.2, sodium 135, potassium 3.8, creatinine 0.85, ammonia 15, lipase 176. Head CT did not show any acute process. EKG independently interpreted showed sinus rhythm with incomplete right bundle branch block. He around 2 L of normal saline in the ED. About 10 mg of IV Ativan. Patient being admitted for severe alcohol withdrawal. Patient admitted to medical ICU. ICU following. Patient remains on Precedex drip. Patient was also hypertensive. Was briefly on Cleviprex drip. Now out of delirium tremens. Being discharged back to [place]. Also being discharged on oral amlodipine. Patient seen and examined at bedside. Vital signs reviewed and stable. General: Nontoxic, no distress, appears at stated age Derm: Warm, dry Head: Atraumatic, normocephalic, symmetric Eyes: EOMI, no lid lag, anicteric sclera Mouth: No lip lesion, mucus membranes moist Cardiovascular: S1S2 reg, no murmur Lungs: CTA bilateral, no rhonchi, no rales, no accessory muscle use Abdominal: Soft, nontender to palpation, no guarding, no appreciable organomegaly Ext: No gross muscle atrophy, no edema, no contractures Neuro: CN II-XI grossly intact, no focal neuro deficits Psych: Alert, oriented, appropriate affect A total of 36 minutes of time were spent preparing this complex discharge summary. Patient was discharged on 07/07/2024 at 901. Patient Condition at Discharge: Stable Plan - Discharge Summary New Discharge Prescriptions: New amLODIPine [Norvasc] 5 mg PO DAILY #90 tab Continue Acetaminophen Tab [Tylenol] 650 mg PO QID PRN PRN Reason: Pain Mirtazapine [Remeron] 15 mg PO HS Multivitamins, Thera [Multivitamin (formulary)] 1 tab PO DAILY PRN PRN Reason: Vitamin Melatonin 10 mg PO HS Loperamide HCl [Imodium A-D] 4 mg PO QID PRN PRN Reason: Diarrhea Hyoscyamine Sulfate [Levsin] 0.125 mg PO QID PRN PRN Reason: Abdominal cramping Chlorpheniramine Maleate [Chlor-Trimeton] 4 mg PO Q4H PRN PRN Reason: runny nose/allergies cloNIDine HCL [Catapres] 0.1 mg PO DAILY PRN PRN Reason: Anxiety cloNIDine HCL [Catapres] 0.1 - 0.3 mg PO Q4H PRN PRN Reason: Hypertension ondansetron HCL [Zofran] 8 mg PO Q6H PRN PRN Reason: Nausea And Vomiting traZODone HCL [Desyrel] 50 - 150 mg PO HS Thiamine [Vitamin B-1] 100 mg PO DAILY PRN PRN Reason: Supplement Mag Hydrox/Aluminum Hyd/Simeth [Mylanta Maximum Strength Liq] 30 ml PO Q4H PRN PRN Reason: antacid Ibuprofen [Motrin Ib] 600 mg PO Q6H PRN PRN Reason: Pain Calcium Phos/D3/Magnesium/Zinc [Zxfbmdk-Gku-Malf-Vitamin D3] 1 tab PO TID PRN PRN Reason: Supplement LORazepam [Ativan] 1 - 2 mg PO Q4H Discharge Medication List Acetaminophen Tab [Tylenol] 650 mg PO QID PRN 07/04/24 [History] Calcium Phos/D3/Magnesium/Zinc [Lebufqz-Fon-Lagr-Vitamin D3] 1 tab PO TID PRN 07/04/24 [History] Chlorpheniramine Maleate [Chlor-Trimeton] 4 mg PO Q4H PRN 07/04/24 [History] Hyoscyamine Sulfate [Levsin] 0.125 mg PO QID PRN 07/04/24 [History] Ibuprofen [Motrin Ib] 600 mg PO Q6H PRN 07/04/24 [History] LORazepam [Ativan] 1 - 2 mg PO Q4H 07/04/24 [History] Loperamide HCl [Imodium A-D] 4 mg PO QID PRN 07/04/24 [History] Mag Hydrox/Aluminum Hyd/Simeth [Mylanta Maximum Strength Liq] 30 ml PO Q4H PRN 07/04/24 [History] Melatonin 10 mg PO HS 07/04/24 [History] Mirtazapine [Remeron] 15 mg PO HS 07/04/24 [History] Multivitamins, Thera [Multivitamin (formulary)] 1 tab PO DAILY PRN 07/04/24 [History] Thiamine [Vitamin B-1] 100 mg PO DAILY PRN 07/04/24 [History] cloNIDine HCL [Catapres] 0.1 - 0.3 mg PO Q4H PRN 07/04/24 [History] cloNIDine HCL [Catapres] 0.1 mg PO DAILY PRN 07/04/24 [History] ondansetron HCL [Zofran] 8 mg PO Q6H PRN 07/04/24 [History] traZODone HCL [Desyrel] 50 - 150 mg PO HS 07/04/24 [History] amLODIPine [Norvasc] 5 mg PO DAILY #90 tab 07/07/24 [Rx] Follow up Appointment(s)/Referral(s): None,Stated [Primary Care Provider] - 1-2 days [facility] [NON-STAFF] - 1 Week Patient Instructions/Handouts: Alcohol Withdrawal (DC) Activity/Diet/Wound Care/Special Instructions: Please see your PCP. Discharge Disposition: HOME SELF-CARE
[2024-07-07] MEDS ORDERED: MELATONIN 3 MG TABLET PO SCH (21:00)
== END 2024-07-07 10:00 | disposition home or self-care (01) | DRG 897 ==
LOC: EC 03:08 → 4SSUR 05:24 → OBSVTOIN 08:14 → 2SICU 09:28
PROVIDERS: ADMIT Internal Medicine; ATTEND Internal Medicine
PROC: HZ2ZZZZ Detoxification Services for Substance Abuse Treatment (ICD-10-PCS; principal; 2024-07-04)
DX: F10.231 Alcohol dependence with withdrawal delirium (principal); E87.20 Acidosis, unspecified; D72.829 Elevated white blood cell count, unspecified; I16.0 Hypertensive urgency; F17.210 Nicotine dependence, cigarettes, uncomplicated; I10 Essential (primary) hypertension; I45.10 Unspecified right bundle-branch block; R44.1 Visual hallucinations; F91.8 Other conduct disorders
CPT/HCPCS: 36415; 70450; 80048; 80053; 80320; 81003; 82140; 82150; 83690; 83735; 85025; 85610; 85730; 93005; 96361; 96365; 96366; 96372; 96375; 96376; 99285